=== PATIENT | female | born 1960 | race Caucasian/White ===

== ENCOUNTER 2016-09-08 14:00 | Emergency (ER) | payer OTHER ==
[~2016-09-08] VITALS: Ht 157.5 cm; Wt 109.3 kg
[~2016-09-08 14:00] MED LIST: AUGMENTIN500 MG PO; BACTRIM,SEPT1 TABLET PO; CLEOCIN300 MG PO; KEFLEX500 MG PO; TRAMADOL HCL50 MG PO; VICODIN 5-3001 EACH PO
[2016-09-08 17:50] VITALS: BP 116/86
== END 2016-09-08 17:50 | disposition home or self-care (01) ==
LOC: EME 14:00
DX: L03.115 Cellulitis of right lower limb (principal); E78.5 Hyperlipidemia, unspecified; F17.200 Nicotine dependence, unspecified, uncomplicated
CPT/HCPCS: 93971; 99281; 99283

== ENCOUNTER 2017-04-10 08:35 | Observation (INO) | payer OTHER ==
[~2017-04-10] VITALS: Ht 165.1 cm; Wt 97.1 kg
[2017-04-10 08:46] LABS: BASOPHIL (%) 0.4 % (0-1); BASOPHIL COUNT 0.1 K/uL (0-0.1); EOSINOPHIL (%) 0.1 % (0-5); HEMATOCRIT 50.5 % (36.0-46.0); HEMOGLOBIN 17.2 G/DL (11.9-15.5); IMMATURE GRANULOCYTE (%) 0.7 % (0.0-0.7); LYMPHOCYTE (%) 13.8 % (15-42); LYMPHOCYTE COUNT 1.9 K/uL (1.0-2.8); MCH 29.8 PG (29.0-34.0); MCHC 34.1 G/DL (30.0-36.0); MCV 87.4 FL (83-99); MONOCYTE (%) 3.1 % (3-12); MONOCYTE COUNT 0.4 K/uL (0-0.8); NEUTROPHIL (%) 81.9 % (45-76); PLATELET COUNT 221 K/uL (156-360); RBC DIS.WIDTH-CV 13.2 % (11.8-14.6); RBC DIS.WIDTH-SD 41.7 % (39-53); RED BLOOD COUNT 5.78 M/uL (3.80-5.20); WHITE BLOOD COUNT 13.4 K/uL (4.1-10.2)
[2017-04-10 08:55] LABS: PTT 27.7 SEC (25-37)
[2017-04-10 08:57] LABS: AMYLASE 57 IU/L (1-118); CHLORIDE 99 mEq/L (99-109); POTASSIUM 3.6 mEq/L (3.7-5.4); SODIUM 139 mEq/L (136-147)
[2017-04-10 08:59] LABS: GLUCOSE 176 mg/dL (70-99)
[2017-04-10 09:02] LABS: SERUM ETHYL ALCOHOL < 10 mg/dL
[2017-04-10 09:03] LABS: GFR ESTIMATE (CALCULATED) > 59 mL/min/
[2017-04-10 09:04] LABS: UREA NITROGEN (BUN) 17 mg/dL (9-23)
[2017-04-10 09:06] LABS: LIPASE 17 U/L (1.0-51.0)
[2017-04-10 09:08] LABS: TROP-I INTERPRETATION NEGATIVE; TROPONIN-I 0.02 ng/mL (0.0-0.30)
[2017-04-10 09:11] LABS: QUANTITATIVE HCG < 4.0 MIU/ML
[2017-04-10 11:09] VITALS: BP 126/81
[2017-04-10 11:20] LABS: HEMOGLOBIN A1c (GLYCOHEMOGLOB) 5.2 % (Below 5.7)
[2017-04-10 13:28] LABS: HDL CHOLESTEROL 38 MG/DL (Desirable>=50); LDL CHOLESTEROL 252 mg/dL (Desirable<100); NON-HDL CHOLESTEROL 305 mg/dL (Desirable<160); TOTAL CHOLESTEROL 343 mg/dL (Desirable<200); TRIGLYCERIDES 266 MG/DL (Normal: <150)
[2017-04-10 15:30] LABS: TROP-I INTERPRETATION NEGATIVE; TROPONIN-I 0.04 ng/mL (0.0-0.30)
[2017-04-10 20:00] VITALS: BP 161/78
[2017-04-10 21:17] LABS: TROP-I INTERPRETATION NEGATIVE; TROPONIN-I 0.02 ng/mL (0.0-0.30)
[2017-04-11] VITALS (7 sets, daily range): BP systolic 131–163; BP diastolic 67–99
[2017-04-11] MEDS ORDERED: CLONAZEPAM1 MG PO (14:16)
[2017-04-11] MEDS ORDERED: GABAPENTIN800 MG PO (14:17)
[2017-04-11] MEDS ORDERED: KLOR-CON 1010 ME1 PO (14:19)
[2017-04-11] MEDS ORDERED: ZANTAC150 MG PO (14:20)
[2017-04-11] MEDS ORDERED: LASIX40 MG PO (14:21)
[2017-04-11] MEDS ORDERED: OXYCODONE-APAP1 EACH PO (14:21)
[2017-04-11] MEDS ORDERED: PRAVASTATIN SOD80 MG PO (14:22)
[2017-04-11] MEDS ORDERED: LOPID600 MG PO (14:23)
[2017-04-12 00:51] VITALS: BP 130/79
[2017-04-12 04:24] VITALS: BP 128/84
[2017-04-12 07:31] VITALS: BP 128/60
[2017-04-12] MEDS ORDERED: ASPIR-LOW81 MG PO (10:37)
== END 2017-04-12 14:37 | disposition home or self-care (01) ==
LOC: EME 08:35 → EDOF 09:04 → 5WEST 09:04 → ENRESERV 09:11 → CANRESERV 09:11 → EDOF 09:16 → ENRESERV 09:52 → 5WEST 10:37 → ENPENDDIS 04-12 → 5WEST 04-12 14:37
PROVIDERS: Emergency Medicine; Internal Medicine
DX: G45.9 Transient cerebral ischemic attack, unspecified (principal); G45.8 Other transient cerebral ischemic attacks and related syndromes; E78.5 Hyperlipidemia, unspecified; L03.115 Cellulitis of right lower limb; G89.29 Other chronic pain; M54.9 Dorsalgia, unspecified; Z79.891 Long term (current) use of opiate analgesic; F17.200 Nicotine dependence, unspecified, uncomplicated; Z82.3 Family history of stroke; I05.8 Other rheumatic mitral valve diseases; I70.0 Atherosclerosis of aorta; Z88.5 Allergy status to narcotic agent; Z88.8 Allergy status to other drugs, medicaments and biological substances
CPT/HCPCS: 70450; 70496; 70498; 70551; 71045; 80048; 80061; 81003; 82150; 83036; 83690; 84484; 84702; 85025; 85610; 85730; 86850; 86900; 86901; 87641; 93005; 93306; 93880; 95819; 99281; 99285; G0378; G0480; J1650; J2060